=== PATIENT | female | born 1960 | race Caucasian/White ===

== ENCOUNTER → 2016-06-20 | Outpatient (CLI) | payer OTHER ==
[~2016-06-20] MED LIST: HORMONES BUCCAL; LIALDA1.2 GM PO; ULTRAM 50MG TAB50 MG PO; WOMEN'S DAILY1 EAC1 PO
== END ==
LOC: MRI 07:08
DX: S83.242A Other tear of medial meniscus, current injury, left knee, initial encounter (principal); M71.22 Synovial cyst of popliteal space [Baker], left knee